=== PATIENT | male | born 1985 | race Hispanic/Latino ===

== ENCOUNTER 2019-02-01 09:28 | Outpatient (CLI) | payer OTHER ==
--- NOTE | 2019-02-01 12:13 | Magnetic Resonance Report ---
MR BRAIN WITH AND WITHOUT CONTRAST HISTORY: Sensorineural hearing loss, left side. COMPARISON: none TECHNIQUE: Multiplanar, multi sequential MRI images of the brain, obtained before and after administr ation of intravenous contrast. CONTRAST: 20 ml of the hands FINDINGS: Cerebral and Cerebellar Hemispheres: No evidence of mass or mass effect. No midline shift. No acute hemorrhage. No diffusion restriction to suggest acute infarct. No extra-axial fluid collection. Ventricles: Normal in size and configuration for age. Visualized Orbits: No significant abnormality. Visualized Paranasal Sinuses: No significant abnormality. Thin collimation images through the internal auditory canals demonstrate a 7 x 8 x 9 mm enhancing lef t acoustic neuroma just within the left internal auditory canal. No right acoustic neuroma. 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 The remainder of the brain parenchyma is within normal limits. Signer Name: Moises Irwin Jr, MD Signed: 02/01/2019 12:08 PM Workstation Name: [id number]
== END 2019-02-01 09:29 | disposition home or self-care (01) ==
LOC: MRI 09:28
PROVIDERS: ATTEND Chiropractor
DX: D33.3 Benign neoplasm of cranial nerves (principal); H90.5 Unspecified sensorineural hearing loss
CPT/HCPCS: 70553; A9577